=== PATIENT | male | born 2000 | race Caucasian/White ===

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

== ENCOUNTER 2020-08-23 20:09 | Emergency (ER) | payer MEDICAID ==
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
--- NOTE | 2020-08-23 21:31 | CR ---
INDICATION: Hand injury TECHNIQUE: Hand radiograph 3 views right COMPARISON: None FINDINGS: Bone: No acute fractures or aggressive bone lesions are identified. Joint: The carpal and metacarpal-phalangeal joints are unremarkable in appearance. The interphalangeal joints are normal in appearance. Soft tissue: Unremarkable. No radiopaque foreign bodies are seen. High density debris noted in the nailbeds of digits 1-4. IMPRESSION: 1. No acute osseous injuries or abnormalities are noted. Dictated by Stephan Ham MD @ 08/23/2020 9:29:53 PM Dictated by: Stephan Ham MD @ 08/23/2020 21:30:19 (Electronically Signed)
== END 2020-08-23 22:31 | disposition home or self-care (01) ==
LOC: MW.ED 20:09
DX: S60.221A Contusion of right hand, initial encounter (principal); Z88.1 Allergy status to other antibiotic agents; Z88.0 Allergy status to penicillin; W22.8XXA Striking against or struck by other objects, initial encounter
CPT/HCPCS: 29105; 29125; 73130-26-RT; 73130-RT; 99282; 99283-25

== ENCOUNTER 2020-08-27 09:51 | Emergency (ER) | payer MEDICAID ==
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
[2020-08-27 11:22] LABS: ACETAMINOPHEN <2.0 ug/mL; BLOOD UREA NITROGEN,BUN 13 mg/dL (7.0-18.0); CARBON DIOXIDE,CO2 26.9 mmol/L (21.0-32.0); CHLORIDE,CL 104 mmol/L (98-107); GLUCOSE RANDOM 87 mg/dL (74-106); SODIUM,NA 141 mmol/L (136-148)
--- NOTE | 2020-08-27 12:40 | CT ---
INDICATION: Attempted hanging. TECHNIQUE: Performed without IV contrast COMPARISON: None FINDINGS: There is mild symmetric prominence of both oral pharyngeal tonsils. No other mucosal pathology is identified in the pharynx or larynx. No mass or fluid collection is identified. No hemorrhages are Normal size lymph nodes are scattered along both sides of the neck. The parotid glands, submandibular glands and thyroid gland are symmetric and unremarkable. There is slight reversal of the normal cervical lordosis, which may be positional or due to muscle spasm. No cervical spine fracture or traumatic subluxation is identified. No worrisome skeletal lesions are identified. C1 spina bifida occulta noted. The visualized portions of the intracranial contents and apical hemithoraces are unremarkable. IMPRESSION: 1. Slight prominence of both oropharyngeal tonsils, which may be physiologic. 2. No other soft tissue abnormality is identified. Please note that this exam was performed without IV contrast, reducing sensitivity for potential arterial injury. Please note that all CT scans at this facility use dose modulation, iterative reconstruction, and/or weight-based dosing when appropriate to reduce radiation dose to as low as reasonably achievable. Dictated by Marco Carpenter MD @ Aug 27 2020 12:32PM Signed by Dr. Marco Carpenter @ Aug 27 2020 12:38PM
[2020-08-27] MEDS ORDERED: Ibuprofen 800 MG Tab PO ONE (14:18)
== END 2020-08-27 17:10 ==
LOC: MW.ED 09:51
DX: R45.81 Low self-esteem (principal); Z88.1 Allergy status to other antibiotic agents; Z88.0 Allergy status to penicillin; Z20.828 Contact with and (suspected) exposure to other viral communicable diseases
CPT/HCPCS: 36415; 70490; 80053; 80305; 80307; 85025; 87635; 93005; 99285; A9270; 93010; 99283; U0002